=== PATIENT | female | born 1950 | race Caucasian/White ===

== ENCOUNTER 2017-07-11 11:09 | Emergency (ER) | payer MEDICARE, OTHER ==
[~2017-07-11] VITALS: Ht 172.7 cm; Wt 113.8 kg
[2017-07-11 11:21] VITALS: BP 191/81; RESP 18; TEMP 99.3; O2SAT 95
--- NOTE | 2017-07-11 11:24 | PD ---
HPI Chief Complaint: Fall Time Seen by Provider: 11:18 Travel History International Travel<30 days: No Contact w/Intl Traveler<30days: No History of Present Illness HPI 66-year-old female visiting from [place] had a trip and fall that was witnessed by her . She had loss of consciousness for about a minute after she hit her head. She states that she has pain to her left forehead in her right hand but denies other concurrent complaints. She denies taking any blood thinner medications. Fall was from standing position. Follow shortly prior to arrival. is currently not present to give additional details and history was supplemented by the ambulance team. History limited from patient given loss of consciousness. PFSH Past Medical History Narrative Medical Seasonal allergies Past Surgical History Surgical History: No Previous Surgery Social History Tobacco Use: No Allergies-Medications (Allergen,Severity, Reaction): Coded Allergies: ether (Verified Allergy, Severe, Respiratory Failure, 07/11/17) Reported Meds & Prescriptions Reported Meds & Active Scripts Active Wing (Hydrocodone-Acetaminophen) 5 Mg-325 Mg Tab 1 Tab PO Q6H PRN Review of Systems Except as stated in HPI: all other systems reviewed are Neg Physical Exam Narrative General: 66 y/o patient in no apparent distress Skin: trauma noted to left supraorbital area with ecchymosis and abrasion Eyes: Pupils equal eomi ENT: no septal hematoma NECK: C-collar in place Cardiovascular: Regular rate and rhythm Respiratory: Normal respiratory effort noted, clear to auscultation bilaterally Abdomen: soft, nontender, nondistended Back: No step-offs, midline spine nontender with logroll Extremities: Pain with palpation of right hand, no lacerations over, neurovascularly intact, no pain with palpation and range of motion of other joints Neuro: awake, alert, sensation and motor grossly intact Data Data Last Documented VS Vital Signs Date Time Temp Pulse Resp B/P (MAP) Pulse Ox O2 Delivery O2 Flow Rate FiO2 07/11/17 14:13 07/11/17 13:34 91 18 97 Room Air 07/11/17 11:28 99.3 Orders Orders Hand, Complete ([id number]) (07/11/17 ) Ct Brain W/O Iv Contrast(Rout) (07/11/17 11:18) Ct Cerv Spine W/O Contrast (07/11/17 11:18) Ct Facial Bones W/O Iv Cont (07/11/17 11:18) Ed Discharge Order (07/11/17 13:46) [facility] Medical Decision Making Medical Screen Exam Complete: Yes Emergency Medical Condition: Yes Medical Record Reviewed: Yes (Past history confirmed) Interpretation(s) Last [address] 07/11/17 1118 Signed Impressions: Service Date/Time: Tuesday, July 11, 2017 12:31 - CONCLUSION: 1. Fracture along the floor the left orbit. 2. Left maxillary sinus fracture. Dale Azul MD Head CT 07/11/17 1118 Signed Impressions: Service Date/Time: Tuesday, July 11, 2017 12:31 - CONCLUSION: 1. No acute intracranial abnormality. 2. Fluid and probable hemorrhage in the left maxillary sinus with suspected left facial fracture but not seen on this study. Dale Azul MD Cervical Spine CT 07/11/17 1118 Signed Impressions: Service Date/Time: Tuesday, July 11, 2017 12:31 - CONCLUSION: No fracture or subluxation. Dale Azul MD Hand X-Ray 07/11/17 0000 Signed Impressions: Service Date/Time: Tuesday, July 11, 2017 11:44 - CONCLUSION: Scattered degenerative changes without fracture. Dale Azul MD Differential Diagnosis Fracture, bleed, strain Narrative Course Will check trauma imaging and reevaluate ED workup with facial fractures. Will discuss with cranial facial is here and states that he witnessed her trip on a curb and fall down. She had loss of consciousness after she hit her head. They agree to testing as ordered. Patient denies any new complaints, all questions answered. Patient knows that follow up is incumbent on them and to return to the emergency room immediately if new or worsening symptoms develop. Patient given strict return precautions, vitals reviewed and are normal, agrees to further workup as an outpatient. Physician Communication Physician Communication dr cotter states can follow in the office Diagnosis Primary Impression: Facial fracture Qualified Codes: S02.92XA - Unspecified fracture of facial bones, initial encounter for closed fracture Referrals: Vasu Cotter MD call for appointment Patient Instructions: General Instructions Additional Instructions: return as needed, norco as needed for severe pain Med/Other Pt SpecificInfo: Prescription(s) given Scripts Hydrocodone-Acetaminophen (Wing) 5 Mg-325 Mg Tab 1 TAB PO Q6H Y for PAIN, #10 TAB 0 Refills Prov: Sushila Chahal MD 07/11/17 Disposition: 01 DISCHARGE HOME Condition: Stable Sushila Chahal MD Jul 11, 2017 11:24
[2017-07-11 11:28] VITALS: BP 191/81; PULSE 85; RESP 18; TEMP 99.3; O2SAT 97
--- NOTE | 2017-07-11 12:13 | RADRPT ---
EXAM DATE/TIME: 07/11/2017 11:44 [facility] COMPARISON: No previous studies available for comparison. INDICATIONS : Right hand pain, fall. MEDICAL HISTORY : None. SURGICAL HISTORY : None. ENCOUNTER: Initial ACUITY: 1 day PAIN SCORE: 3/10 LOCATION: Right hand, metacarpals FINDINGS: Three view examination of the right hand demonstrates no soft tissue swelling, dislocation, or fractu re. The carpal bones appear intact. Scattered degenerative changes. Bony mineralization is normal . CONCLUSION: Scattered degenerative changes without fracture. Dale Azul MD on July 11, 2017 at 12:10 Board Certified Radiologist. This report was verified electronically.
--- NOTE | 2017-07-11 12:41 | RADRPT ---
EXAM DATE/TIME: 07/11/2017 12:31 [facility] COMPARISON: No previous studies available for comparison. INDICATIONS : Trauma, fall today. RADIATION DOSE: 45.23 CTDIvol (mGy) MEDICAL HISTORY : None SURGICAL HISTORY : None. ENCOUNTER: Initial ACUITY: 1 day PAIN SCALE: 5/10 LOCATION: cranial TECHNIQUE: Multiple contiguous axial images were obtained of the head. Using automated exposure control and adj ustment of the mA and/or kV according to patient size, radiation dose was kept as low as reasonably a chievable to obtain optimal diagnostic quality images. DICOM format image data is available electro nically for review and comparison. FINDINGS: CEREBRUM: The ventricles are normal for age. No evidence of midline shift, mass lesion, hemorrhage or acute in farction. No extra-axial fluid collections are seen. POSTERIOR FOSSA: The cerebellum and brainstem are intact. The 4th ventricle is midline. The cerebellopontine angle i s unremarkable. EXTRACRANIAL: The visualized portion of the orbits is intact. Fluid in the left maxillary sinus with periorbital le ft-sided soft tissue swelling SKULL: The calvaria is intact. No evidence of skull fracture. CONCLUSION: 1. No acute intracranial abnormality. 2. Fluid and probable hemorrhage in the left maxillary sinus with suspected left facial fracture but not seen on this study. Dale Azul MD on July 11, 2017 at 12:38 Board Certified Radiologist. This report was verified electronically.
--- NOTE | 2017-07-11 12:58 | RADRPT ---
EXAM DATE/TIME: 07/11/2017 12:31 [facility] COMPARISON: No previous studies available for comparison. INDICATIONS : Trauma, fall. Neck pain. RADIATION DOSE: 23.67 CTDIvol (mGy) MEDICAL HISTORY : None SURGICAL HISTORY : None. ENCOUNTER: Initial ACUITY: 1 day PAIN SCALE: 4/10 LOCATION: neck TECHNIQUE: Volumetric scanning of the cervical spine was performed. Multiplanar reconstructions in the sagittal, coronal and oblique axial planes were performed. Using automated exposure control and adjustment o f the mA and/or kV according to patient size, radiation dose was kept as low as reasonably achievable to obtain optimal diagnostic quality images. DICOM format image data is available electronically f or review and comparison. FINDINGS: VERTEBRAE: Normal vertebral body height. Degenerative changes from C5-C7. ALIGNMENT: No evidence of subluxation. C2-C3: The bony spinal canal is normal in size. No evidence of disc bulge or herniation. The neural forami na are bilaterally patent. C3-C4: The bony spinal canal is normal in size. No evidence of disc bulge or herniation. The neural forami na are bilaterally patent. C4-C5: The bony spinal canal is normal in size. No evidence of disc bulge or herniation. The neural forami na are bilaterally patent. C5-C6: The bony spinal canal is normal in size. No evidence of disc bulge or herniation. The neural forami na are bilaterally patent. C6-C7: The bony spinal canal is normal in size. No evidence of disc bulge or herniation. The neural forami na are bilaterally patent. C7-T1: The bony spinal canal is normal in size. No evidence of disc bulge or herniation. The neural forami na are bilaterally patent. CONCLUSION: No fracture or subluxation. Dale Azul MD on July 11, 2017 at 12:54 Board Certified Radiologist. This report was verified electronically.
--- NOTE | 2017-07-11 13:00 | RADRPT ---
EXAM DATE/TIME: 07/11/2017 12:31 [facility] COMPARISON: No previous studies available for comparison. INDICATIONS : Trauma, fall. RADIATION DOSE: 64.36 CTDIvol (mGy) MEDICAL HISTORY : None SURGICAL HISTORY : None. ENCOUNTER: Initial ACUITY: 1 day PAIN SCORE: 5/10 LOCATION: Left facial TECHNIQUE: Volumetric scanning of the facial bones was performed. Using automated exposure control and adjustme nt of the mA and/or kV according to patient size, radiation dose was kept as low as reasonably achiev able to obtain optimal diagnostic quality images. DICOM format image data is available electronicall y for review and comparison. FINDINGS: ORBITS: There is fracture along the floor of the left orbit. No impingement upon the extraocular muscles. No retrobulbar hemorrhage. Left-sided periorbital soft tissue swelling. Right orbit intact. NASAL BONE: The nasal bone and maxillary spine are intact ZYGOMATIC ARCHES: Symmetric without evidence of fracture. SINUSES: There is fracture of the anterior left maxillary sinus with hemorrhage throughout the left maxillary sinus. Right-sided paranasal sinuses are intact.. NASAL CAVITY: The nasal septum is deviated to the right. The lacrimal ducts are intact. SOFT TISSUES: No radiopaque foreign bodies seen. Left periorbital soft-tissue swelling is seen. INTRACRANIAL: No intracranial air seen. CRIBIFORM PLATE: Grossly intact. CONCLUSION: 1. Fracture along the floor the left orbit. 2. Left maxillary sinus fracture. Dale Azul MD on July 11, 2017 at 12:55 Board Certified Radiologist. This report was verified electronically.
[2017-07-11 13:34] VITALS: BP 176/79; PULSE 91; RESP 18; O2SAT 97
[2017-07-11] MEDS ORDERED: NORC5TAB PO (13:52)
== END 2017-07-11 14:14 | disposition home or self-care (01) ==
LOC: NEPE 11:09
DX: S02.32XA Fracture of orbital floor, left side, initial encounter for closed fracture (principal); S02.40DA Maxillary fracture, left side, initial encounter for closed fracture; W01.0XXA Fall on same level from slipping, tripping and stumbling without subsequent striking against object, initial encounter
CPT/HCPCS: 70450; 70486; 72125; 73130; 99283